=== PATIENT | female | born 1930 | race Caucasian/White ===

== ENCOUNTER 2017-02-25 09:43 | Emergency (ER) | payer MEDICARE, OTHER ==
[~2017-02-25] VITALS: Ht 162.6 cm; Wt 58.2 kg
[~2017-02-25 09:43] MED LIST: AMLO2.5T PO; COUM3TAB PO; COUM4TAB7 PO; HYDR12.56 PO; LISI-363 PO; POTA10IN2 PO; PRAV10 PO
[2017-02-25 09:45] VITALS: BP 118/56; PULSE 72; PULSE 80; RESP 16; TEMP 97.6; O2SAT 98
[2017-02-25] MEDS ORDERED: BACT800T5 PO (10:16)
[2017-02-25] MEDS ORDERED: WARF-58 PO (10:16)
[2017-02-25] MEDS ORDERED: PRED10 PO (10:16)
[2017-02-25] MEDS ORDERED: PRAV20TA2 PO (10:16)
[2017-02-25] MEDS ORDERED: LISI-515 PO (10:16)
[2017-02-25] MEDS ORDERED: POTA10TA15 PO (10:16)
[2017-02-25] MEDS ORDERED: ALPR0.25 PO (10:16)
[2017-02-25] MEDS ORDERED: METO25TA6 PO (10:16)
[2017-02-25] MEDS ORDERED: TRIA37.5 PO (10:16)
--- NOTE | 2017-02-25 10:24 | PD ---
HPI Chief Complaint: Back/ Neck Pain or Injury Time Seen by Provider: 10:02 Travel History International Travel<30 days: No Contact w/Intl Traveler<30days: No Traveled to known affect area: No History of Present Illness HPI The patient was seen and examined in the presence of the nurse. This patient complains of intermittent low back pain for one week. No fall or injury. She is getting around with a walker. Severity symptoms is moderate. No alleviating factors. No fever or urinary complaints. Pain is brought on by certain position changes and movements. PFSH Past Medical History Hx Anticoagulant Therapy: Yes (COUMADIN) Cardiovascular Problems: Yes (CABG X 4 ) High Cholesterol: Yes Coronary Artery Disease: Yes Hypertension: Yes Tetanus Vaccination: > 5 Years Influenza Vaccination: Yes Past Surgical History Coronary Artery Bypass Graft: Yes (X4) Social History Alcohol Use: No Tobacco Use: No Substance Use: No Allergies-Medications (Allergen,Severity, Reaction): Coded Allergies: No Known Allergies (Unverified , 02/25/17) Reported Meds & Prescriptions Reported Meds & Active Scripts Active Reported Potassium Chloride Microencaps 10 Meq Tab 10 Meq PO DAILY Triamterene-Hydrochlorothiazide 37.5-25 Mg Tab 1 Tab PO DAILY Warfarin 3 Mg Tab 1.5 Tab PO DAILY Lisinopril 20 Mg Tab 20 Mg PO DAILY Metoprolol Succinate ER 24 HR (Metoprolol Succinate) 25 Mg Tab 25 Mg PO DAILY Prednisone 10 Mg Tab 10 Mg PO DAILY Pravastatin 20 Mg Tab 20 Mg PO DAILY Bactrim DS (Sulfamethoxazole-Trimethoprim) 800-160 Mg Tab 1 Tab PO BID Alprazolam 0.25 Mg Tab 0.25 Mg PO DAILY PRN Review of Systems General / Constitutional: No: Fever HENT: No: Headaches Cardiovascular: No: Palpitations Respiratory: No: Cough Physical Exam Narrative Gen.: Thin elderly woman with some low back pain CARDIOVASCULAR: Irregularly irregular rhythm without murmur. Extremities showed no edema or varicosities. GASTROINTESTINAL: Abdomen soft, non-tender, nondistended. Positive bowel sounds. No hepato-splenomegaly, or palpable masses. No guarding. NEUROLOGICAL: Awake and alert. Pupils are equal round and reactive. Motor and sensory grossly within normal limits. Five out of 5 muscle strength in all muscle groups. Normal speech. Straight leg and cross straight leg raise negative Data Data Last Documented VS Vital Signs Date Time Temp Pulse Resp B/P Pulse Ox O2 Delivery O2 Flow Rate FiO2 02/25/17 09:45 72 16 118/56 98 Room Air 02/25/17 09:45 97.6 Orders Spine, Lumbar - Ltd (Ap & Lat) (02/25/17 ) Oxycodone-Acetamin 5-325 Mg (Percocet (02/25/17 10:45) MDM Medical Decision Making Medical Screen Exam Complete: Yes Emergency Medical Condition: Yes Medical Record Reviewed: Yes Differential Diagnosis Compression fracture, arthritis, lumbar strain Narrative Course I have reviewed the patient's electronic medical record. This patient has intermittent low central back pain for a week. No injury or fever or urinary complaints. By history and exam this points to a musculoskeletal origin. I reviewed her lumbosacral spine x-rays which show chronic and stable L5 insufficiency fracture as well as diffuse arthritic change I don't have clinical suspicion of something more sinister such as AAA. Her vital signs are normal. No hypotension or tachycardia. She is basically asymptomatic when at rest in the bed and not moving. I gave her a pain pill for it. I wrote her some tramadol. She is stable for outpatient follow-up. She is ambulatory with a walker. A family friend who is with her in the ER is going to call her family physician tomorrow morning and get follow-up. They're going to discuss transition to [facility] care Diagnosis Primary Impression: Low back pain Qualified Code: M54.5 - Acute midline low back pain without sciatica Additional Instructions: The patient was advised to follow up with their physician and return if they worsen. The patient was warned about potential sedation for the medications they will receive on prescription. Med/Other Pt SpecificInfo: Prescription(s) given Scripts Tramadol 50 Mg Tab50 Mg PO Q6H PRN (PAIN) #25 TAB Ref 0 Prov:Will Sofia MD 02/25/17 Disposition: 01 DISCHARGE HOME Condition: Stable Will Sofia MD Feb 25, 2017 10:24
--- NOTE | 2017-02-25 10:44 | RADRPT ---
EXAM DATE/TIME: 02/25/2017 10:23 [facility] COMPARISON: HIP LEFT (AP&LAT 2/3VWS) W AP PELVIS, May 04, 2016, 15:23. INDICATIONS : Back pain. MEDICAL HISTORY : None. SURGICAL HISTORY : None. ENCOUNTER: Initial ACUITY: 4 - 6 days PAIN SCORE: 10/10 LOCATION: Lumbar FINDINGS: Multiple views of the lumbar spine again demonstrate diffuse osteopenia and curvature of the lumbar s pine apex left with multilevel degenerative disc changes and insufficiency fracture involving the L5 vertebral body. This appears unchanged from prior plain film of April 2016. No new findings. Imaged heart is remarkable for cardiac valve and in fact median sternotomy wires. Residual pacing khloe ds are noted. CONCLUSION: Osteopenia, scoliosis and multilevel degenerative change with stable appearance of insufficiency frac ture at the level of L5. Lakeshia Beltran MD on February 25, 2017 at 10:41 Board Certified Radiologist. This report was verified electronically.
[2017-02-25 10:45] VITALS: BP 103/51; PULSE 74; RESP 16; O2SAT 98
[2017-02-25] MEDS ORDERED: TRAM50TA PO (11:03)
[2017-02-25] MEDS: oxyCODONE/ACETAMINOPHEN 5 MG/325 MG TAB PO ONE (11:05)
[2017-03-22] MEDS ORDERED: BACT800T5 PO (15:14)
[2017-05-02] MEDS ORDERED: eloquis PO (11:58)
[2017-05-03] MEDS ORDERED: APIX2.5T PO (11:22)
== END 2017-02-25 11:30 | disposition home or self-care (01) ==
LOC: NEPE 09:43
DX: M54.5 Low back pain (principal); I25.10 Atherosclerotic heart disease of native coronary artery without angina pectoris; I10 Essential (primary) hypertension; E78.00 Pure hypercholesterolemia, unspecified; Z79.01 Long term (current) use of anticoagulants; Z79.899 Other long term (current) drug therapy
CPT/HCPCS: 72100; 99283

== ENCOUNTER 2018-04-21 17:21 | Inpatient (IN) | payer MEDICARE, OTHER ==
[~2018-04-21] VITALS: Ht 165.1 cm; Wt 57.0 kg
[~2018-04-21 17:21] MED LIST changes: +ALPR0.25 PO; -AMLO2.5T PO; +APIX2.5T PO; -COUM3TAB PO; -COUM4TAB7 PO; -HYDR12.56 PO; -LISI-363 PO; +LISI-515 PO; +METO1TAB42 PO; -POTA10IN2 PO; +POTA10TA15 PO; -PRAV10 PO; +PRAV20TA2 PO; +TRIA37.5 PO
[2018-04-21 17:33] VITALS: BP 128/80; PULSE 95; RESP 20; TEMP 98.1; O2SAT 95
--- NOTE | 2018-04-21 18:44 | RADRPT ---
EXAM DATE: 04/21/2018 6:39 PM EDT AGE/SEX: 88 years / Female INDICATIONS: Cough. CLINICAL DATA: This is the patient's initial encounter. Patient reports that signs and symptoms have been present for 1 day and indicates a pain score of 0/10. MEDICAL/SURGICAL HISTORY: Cardiovascular disease. CABG. COMPARISON: [facility], CHEST SINGLE AP, 05/04/2016. . FINDINGS: Patchy infiltrates are noted bilaterally consistent with moderate pulmonary edema versus pneumonia. C linical correlation is recommended. The heart is enlarged. Median sternotomy wires are noted status p ost cardiac surgery. The left hemidiaphragm remains elevated. Degenerative changes and scoliosis of t he thoracolumbar spine are noted. CONCLUSION: 1. Infiltrates bilaterally consistent with moderate pulmonary edema versus pneumonia. Clinical corre lation is recommended. 2. Cardiomegaly. 3. Elevation of the left hemidiaphragm. 4. Degenerative changes and scoliosis of the thoracolumbar spine. Electronically signed by: Marcelo Ahuja MD 04/21/2018 6:43 PM EDT
--- NOTE | 2018-04-21 18:45 | RADRPT ---
EXAM DATE: 04/21/2018 6:39 PM EDT AGE/SEX: 88 years / Female INDICATIONS: Left ankle and heel pain. CLINICAL DATA: This is the patient's initial encounter. Patient reports that signs and symptoms have been present for 1 day and indicates a pain score of 8/10. MEDICAL/SURGICAL HISTORY: Cardiovascular disease. Gout CABG. COMPARISON: No prior [facility] exams available for comparison. FINDINGS: Bones are diffusely osteopenic. I don't see a fracture or subluxation of the left ankle. Thickening and patchy calcification seen of Achilles. There is a small to moderate enthesophyte of it s insertion. Small heel spur present. CONCLUSION: No fracture or subluxation demonstrated of the left ankle. Osteopenia. Probable Achilles tendinosis. Electronically signed by: Devonte Cantu MD 04/21/2018 6:44 PM EDT
[2018-04-21] MEDS ORDERED: AZITHROMYCIN INJ 500 MG in SODIUM CHLOR 0.9% 250 ML INJ 250 ML IV ONE (19:00)
[2018-04-21] MEDS ORDERED: cefTRIAXone INJ 1,000 MG in SODIUM CHLORIDE 0.9% INJ 100 ML IV ONE (19:00)
--- NOTE | 2018-04-21 19:00 | PD ---
HPI Chief Complaint: Injury Time Seen by Provider: 17:52 Travel History International Travel<30 days: No Contact w/Intl Traveler<30days: No Traveled to known affect area: No History of Present Illness HPI Patient is an 88-year-old female who presents emergency department several days after twisting her left ankle. She states that she felt a pop initially and has been walking on it initially having some bruises but ultimately healing well. She also has been having some shortness of breath and cough and has a history of bronchitis in the past and thought that this was that. She had some old antibiotics left over from a previous infection and began taking them. Denies a smoking history. Denies any chest pain head injury neck injury back injury. 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 Reported Meds & Prescriptions Reported Meds & Active Scripts Active Reported Eliquis (Apixaban) 2.5 Mg Tab 2.5 Mg PO BID Potassium Chloride Microencaps 10 Meq Tab 10 Meq PO DAILY Triamterene-Hydrochlorothiazide 37.5-25 Mg Tab 1 Tab PO DAILY Lisinopril 20 Mg Tab 20 Mg PO DAILY Metoprolol Succinate ER 24 HR (Metoprolol Succinate) 25 Mg Tab 25 Mg PO DAILY Pravastatin 20 Mg Tab 20 Mg PO DAILY Alprazolam 0.25 Mg Tab 0.25 Mg PO DAILY PRN Review of Systems Except as stated in HPI: all other systems reviewed are Neg Physical Exam Narrative GENERAL: Well-developed well-nourished, quite pleasant, nontoxic appearance in no acute distress peer SKIN: Focused skin assessment warm/dry. HEAD: Atraumatic. Normocephalic. Atraumatic EYES: Pupils equal and round. No scleral icterus. No injection or drainage. ENT: No nasal bleeding or discharge. Mucous membranes pink and moist. NECK: Trachea midline. No JVD. CARDIOVASCULAR: Regular rate and rhythm. No murmur appreciated. RESPIRATORY: No accessory muscle use. Bibasilar rales heard which are very fine.. Breath sounds equal bilaterally. GASTROINTESTINAL: Abdomen soft, non-tender, nondistended. Hepatic and splenic margins not palpable. MUSCULOSKELETAL: No obvious deformities. No clubbing. No cyanosis. No edema. There is no bruising no tenderness over the medial or lateral malleoli nor the midfoot nor forefoot on the left ankle, the remainder of her extremity examination is atraumatic. There is no midline CT or L-spine tenderness but the patient has significant scoliosis. Pelvis is stable. NEUROLOGICAL: Awake and alert. No obvious cranial nerve deficits. Motor grossly within normal limits. Normal speech. PSYCHIATRIC: Appropriate mood and affect; insight and judgment normal. Data Data Last Documented VS Vital Signs Date Time Temp Pulse Resp B/P (MAP) Pulse Ox O2 Delivery O2 Flow Rate FiO2 04/21/18 19:25 95 Nasal Cannula 04/21/18 19:25 90 18 141/96 (111) 2.00 04/21/18 17:33 98.1 Orders Orders Chest, Pa & Lat (04/21/18 ) Ankle, Complete ([id number]) (04/21/18 ) Sepsis Workup Initiated (04/21/18 ) Complete Blood Count With Diff (04/21/18 18:49) Comprehensive Metabolic Panel (04/21/18 18:49) Prothrombin Time / Inr (Pt) (04/21/18 18:49) Act Partial Throm Time (Ptt) (04/21/18 18:49) Lactic Acid Sepsis Protocol (04/21/18 18:49) Magnesium (Mg) (04/21/18 18:49) Lipase (04/21/18 18:49) Ckmb (Isoenzyme) Profile (04/21/18 18:49) Troponin I (04/21/18 18:49) Urinalysis - C+S If Indicated (04/21/18 18:49) Blood Culture (04/21/18 18:49) Ecg Monitoring (04/21/18 18:49) Iv Access Insert/Monitor (04/21/18 18:49) Oximetry (04/21/18 18:49) Oxygen Administration (04/21/18 18:49) Ceftriaxone Inj (Rocephin Inj) (04/21/18 19:00) Azithromycin Inj (Zithromax Inj) (04/21/18 19:00) Labs Laboratory Tests Test 04/21/18 19:20 White Blood Count 8.6 TH/MM3 Red Blood Count 3.88 MIL/MM3 Hemoglobin 12.9 GM/DL Hematocrit 38.6 % Mean Corpuscular Volume 99.6 FL Mean Corpuscular Hemoglobin 33.2 PG Mean Corpuscular Hemoglobin Concent 33.4 % Red Cell Distribution Width 14.3 % Platelet Count 173 TH/MM3 Mean Platelet Volume 9.2 FL Neutrophils (%) (Auto) 82.1 % Lymphocytes (%) (Auto) 4.3 % Monocytes (%) (Auto) 12.9 % Eosinophils (%) (Auto) 0.5 % Basophils (%) (Auto) 0.2 % Neutrophils # (Auto) 7.1 TH/MM3 Lymphocytes # (Auto) 0.4 TH/MM3 Monocytes # (Auto) 1.1 TH/MM3 Eosinophils # (Auto) 0.0 TH/MM3 Basophils # (Auto) 0.0 TH/MM3 CBC Comment DIFF FINAL Differential Comment MDM Medical Decision Making Medical Screen Exam Complete: Yes Emergency Medical Condition: Yes Differential Diagnosis Pulmonary fibrosis, pneumonia, SIRS, sepsis, hypoxia, ankle sprain, ankle fracture, ankle strain peer Narrative Course Patient room to the emergency department, she is mildly hypoxic in the emergency department placed on 2 L nasal cannula and is tolerating this fairly well. Her bibasilar rales are confirmed on chest x-ray which does show either pneumonia, pulmonary edema or could be pulmonary fibrosis. The patient's previous chest x-ray was from 2016 and did not show as significant findings as they are today. For that reason I have added basic lab work we discussed the patient with Dr. Martinez at 1900 shift change to follow-up labs and disposition the patient appropriately. Last 24 hours Impressions Chest X-Ray 04/21/18 0000 Signed Impressions: CONCLUSION: 1. Infiltrates bilaterally consistent with moderate pulmonary edema versus pne umonia. Clinical correlation is recommended. 2. Cardiomegaly. 3. Elevation of the left hemidiaphragm. 4. Degenerative changes and scoliosis of the thoracolumbar spine. Ankle X-Ray 04/21/18 0000 Signed Impressions: CONCLUSION: No fracture or subluxation demonstrated of the left ankle. Osteopenia. Probable Achilles tendinosis. Marcelo Joy MD Apr 21, 2018 19:00
[2018-04-21 19:25] VITALS: BP 141/96; PULSE 90; RESP 18; O2SAT 96
--- NOTE | 2018-04-21 19:27 | PD ---
Physical Exam Narrative General: The patient is a well-developed well-nourished female in no acute distress. Head and Neck exam: Head is normocephalic atraumatic. Eyes: EOMI, pupils are equal round and reactive to light. Nose: Midline septum with pink mucous membranes Mouth: Dentition unremarkable. Moist mucus membranes. Posterior oropharynx is not erythematous. No tonsillar hypertrophy. Uvula midline. Airway patent. Neck: No palpable lymphadenopathy. No nuchal rigidity. No thyromegaly. Cardiovascular: Irregularly erect without murmurs, gallops, or rubs. No pulse deficit to the extremities on simultaneous auscultation and palpation of her radial artery. Lungs: Crackles are audible in bilateral lung davis most prominent in the lung bases. The patient has a frequent dry cough on exam. No wheezes or rhonchi are audible. Abdomen: Soft, without tenderness to palpation in all 4 quadrants of the abdomen. No guarding, rebound, or rigidity. Normal bowel sounds are audible. No tenderness on palpation of McBurney's point. Extremities: No clubbing, cyanosis, or edema. 2+ pulses in all 4 extremities. No calf tenderness on palpation. The patient on examination of the left foot reports having pain along the plantar fascia. No erythema or ecchymosis noted. Neurologic Exam: Grossly nonfocal. Skin Exam: No rash noted. Intact skin that is warm and dry. Data Data Last Documented VS Vital Signs Date Time Temp Pulse Resp B/P (MAP) Pulse Ox O2 Delivery O2 Flow Rate FiO2 04/21/18 21:00 92 18 138/81 (100) 96 Nasal Cannula 2.00 04/21/18 17:33 98.1 Orders Orders Chest, Pa & Lat (04/21/18 ) Ankle, Complete ([id number]) (04/21/18 ) Sepsis Workup Initiated (04/21/18 ) Complete Blood Count With Diff (04/21/18 18:49) Comprehensive Metabolic Panel (04/21/18 18:49) Prothrombin Time / Inr (Pt) (04/21/18 18:49) Act Partial Throm Time (Ptt) (04/21/18 18:49) Lactic Acid Sepsis Protocol (04/21/18 18:49) Magnesium (Mg) (04/21/18 18:49) Lipase (04/21/18 18:49) Ckmb (Isoenzyme) Profile (04/21/18 18:49) Troponin I (04/21/18 18:49) Urinalysis - C+S If Indicated (04/21/18 18:49) Blood Culture (04/21/18 18:49) Ecg Monitoring (04/21/18 18:49) Iv Access Insert/Monitor (04/21/18 18:49) Oximetry (04/21/18 18:49) Oxygen Administration (04/21/18 18:49) Ceftriaxone Inj (Rocephin Inj) (04/21/18 19:00) Azithromycin Inj (Zithromax Inj) (04/21/18 19:00) B-Type Natriuretic Peptide (04/21/18 21:09) Admit Order (Ed Use Only) (04/21/18 21:50) Labs Laboratory Tests Test 04/21/18 19:20 White Blood Count 8.6 TH/MM3 Red Blood Count 3.88 MIL/MM3 Hemoglobin 12.9 GM/DL Hematocrit 38.6 % Mean Corpuscular Volume 99.6 FL Mean Corpuscular Hemoglobin 33.2 PG Mean Corpuscular Hemoglobin Concent 33.4 % Red Cell Distribution Width 14.3 % Platelet Count 173 TH/MM3 Mean Platelet Volume 9.2 FL Neutrophils (%) (Auto) 82.1 % Lymphocytes (%) (Auto) 4.3 % Monocytes (%) (Auto) 12.9 % Eosinophils (%) (Auto) 0.5 % Basophils (%) (Auto) 0.2 % Neutrophils # (Auto) 7.1 TH/MM3 Lymphocytes # (Auto) 0.4 TH/MM3 Monocytes # (Auto) 1.1 TH/MM3 Eosinophils # (Auto) 0.0 TH/MM3 Basophils # (Auto) 0.0 TH/MM3 CBC Comment DIFF FINAL Differential Comment Prothrombin Time 11.2 SEC Prothromb Time International Ratio 1.1 RATIO Activated Partial Thromboplast Time 35.0 SEC Blood Urea Nitrogen 19 MG/DL Creatinine 0.79 MG/DL Random Glucose 98 MG/DL Total Protein 6.9 GM/DL Albumin 3.0 GM/DL Calcium Level 9.6 MG/DL Magnesium Level 2.1 MG/DL Alkaline Phosphatase 102 U/L Aspartate Amino Transf (AST/SGOT) 19 U/L Alanine Aminotransferase (ALT/SGPT) 29 U/L Total Bilirubin 1.0 MG/DL Sodium Level 135 MEQ/L Potassium Level 4.0 MEQ/L Chloride Level 96 MEQ/L Carbon Dioxide Level 28.2 MEQ/L Anion Gap 11 MEQ/L Estimat Glomerular Filtration Rate 69 ML/MIN Lactic Acid Level 1.4 mmol/L Total Creatine Kinase 35 U/L Troponin I LESS THAN 0.02 NG/ML B-Type Natriuretic Peptide 412 PG/ML Lipase 73 U/L [facility] Medical Record Reviewed: Yes Supervised Visit with MORIAH: No Narrative Course During the course of the patient's emergency department visit, the patient's history, examination, and differential diagnosis were reviewed with the patient. The patient was placed on a monitoring manager with oximetry and frequent blood pressure monitoring. The patient had IV access obtained and blood work sent for analysis. The patient's case was checked out to me by Dr. Joy. Please see his complete history and physical. The patient's case was checked out to me at the conclusion of his shift. The patient according to Dr. Joy was mildly hypoxic and placed on 2 L nasal cannula O2. The patient was noted to have bilateral crackles. The patient reports a history of cough, congestion that she reports began 2 days ago. She reports having dyspnea on exertion and shortness of breath with persistent cough. She denies having any chest pain. She denies having any prior history of coronary artery disease. Her primary care physician is Dr. Wellington. Her truck railroad and bus motor mechanic is Dr. Oates. She reports a prior history of coronary artery disease with 4 vessels being bypassed and a valve being replaced. She is anticoagulated on Eliquis. The patient reports having a subjective fever over the last 2 days, however she has not checked her temperature. The patient was initially provided Rocephin 1 g IV, Zithromax 500 IV. The patient's laboratory studies were reviewed and remarkable for a white count of 8.6, hemoglobin 12.9, platelets 173 with 82.1 neutrophils, monocytes 12.9, CMP is remarkable for a sodium of 135, chloride 96, BUN 19, GFR of 69, cardiac enzymes within normal limits, lipase 73, lactic acid 1.4, PT 11.2, PTT 35 Radiology studies were reviewed and remarkable for Last Impressions Chest X-Ray 04/21/18 0000 Signed Impressions: CONCLUSION: 1. Infiltrates bilaterally consistent with moderate pulmonary edema versus pne umonia. Clinical correlation is recommended. 2. Cardiomegaly. 3. Elevation of the left hemidiaphragm. 4. Degenerative changes and scoliosis of the thoracolumbar spine. Ankle X-Ray 04/21/18 0000 Signed Impressions: CONCLUSION: No fracture or subluxation demonstrated of the left ankle. Osteopenia. Probable Achilles tendinosis. Given the possibility of pulmonary edema from congestive heart failure is being the cause of the patient's bilateral infiltrates, BNP was added to the patient' s workup. The patient denies any prior history of congestive heart failure. The patient reports having a recent history of cough and congestion with subjective fever. At this point the patient will be treated for an atypical bilateral pneumonia. The patient's results were discussed with the patient, including the plan of care. I explained that further testing and/ or monitoring is indicated based on the patient's history, examination, and/ or laboratory findings. Therefore, I recommended admission for additional evaluation. The patient expressed understanding and was agreeable with this plan. The patient was admitted to the hospital in stable condition and sent to a bed [facility]. Physician Communication Physician Communication The patient's case including history, pertinent physical examination findings, and laboratory studies were discussed with Dr. Olmos. It was agreed that the patient would be admitted to the [facility] service. Diagnosis Primary Impression: PNA (pneumonia) Admitting Information Admitting Physician Requests: Observation Tamara Martinez MD Apr 21, 2018 19:27
[2018-04-21 20:01] LABS: AUTOMATED NEUTROPHIL # 7.1 TH/MM3 (1.8-7.7); BASOPHIL % 0.2 % (0.0-2.0); EOSINOPHIL % 0.5 % (0.0-4.0); HEMATOCRIT 38.6 % (35.0-46.0); HEMOGLOBIN 12.9 GM/DL (11.6-15.3); LYMPH % 4.3 % (9.0-44.0); LYMPHOCYTE # 0.4 TH/MM3 (1.0-4.8); MEAN CELL VOLUME 99.6 FL (80.0-100.0); MEAN CORPUSCULAR HEMOGLOBIN 33.2 PG (27.0-34.0); MEAN CORPUSCULAR HGB CONC 33.4 % (32.0-36.0); MEAN PLATELET VOLUME 9.2 FL (7.0-11.0); MONO % 12.9 % (0.0-8.0); MONOCYTE # 1.1 TH/MM3 (0-0.9); NEUT % 82.1 % (16.0-70.0); PLATELET COUNT 173 TH/MM3 (150-450); RED BLOOD COUNT 3.88 MIL/MM3 (4.00-5.30); RED CELL DISTRIBUTION WIDTH 14.3 % (11.6-17.2); WHITE BLOOD COUNT 8.6 TH/MM3 (4.0-11.0)
[2018-04-21 20:12] LABS: INTERNATIONAL NORMALIZED RATIO 1.1 RATIO; PROTHROMBIN TIME - PATIENT 11.2 SEC (9.8-11.6)
[2018-04-21 20:28] LABS: AST (GOT) 19 U/L (15-37); BICARBONATE 28.2 MEQ/L (21.0-32.0); BLOOD UREA NITROGEN 19 MG/DL (7-18); CALCIUM 9.6 MG/DL (8.5-10.1); CHLORIDE 96 MEQ/L (98-107); CREATININE 0.79 MG/DL (0.50-1.00); GLOMERULAR FILTRATION RATE 69 ML/MIN (>89); GLUCOSE,RANDOM 98 MG/DL (74-106); MAGNESIUM 2.1 MG/DL (1.5-2.5); SODIUM (NA) 135 MEQ/L (136-145)
[2018-04-21 20:36] LABS: ALKALINE PHOSPHATASE 102 U/L (45-117); ALT (GPT) 29 U/L (10-53); TOTAL PROTEIN 6.9 GM/DL (6.4-8.2); TROPONIN I LESS THAN 0.02 NG/ML (0.02-0.05)
[2018-04-21 21:00] VITALS: BP 138/81; PULSE 92; RESP 18; O2SAT 96
--- NOTE | 2018-04-21 22:26 | HHI.HP ---
[facility] Kristin Wellington MD Admission Diagnosis bilateral pneumonia Diagnoses: (1) PNA (pneumonia) Diagnosis: Principal (2) Foot pain, left Diagnosis: Principal (3) Gait instability Diagnosis: Principal Travel History International Travel<30 Days: No Contact w/Intl Traveler <30 Da: No Traveled to Known Affected Are: No History of Present Illness This is an 88-year-old female with a PMH of HTN, Hyperlipidemia, CAD and Chronic Anticoagulation w/ Eliquis (reason unclear) who presented to the ER w/ complaints of SOB, cough and left foot pain. Reports cough/SOB for 3-4 days, states she had leftover antibiotics from previous dental infection and was told by her neighbor she should take it until she could be seen by her PCP on Sunday. Neighbor at bedside also states pt lives alone and has increasing difficulty w/ ambulation due to left foot pain from plantar fasciitis. Ambulates w/ walker. Denies fever, chills or chest pain. On arrival, BP 128/80 , HR 95, O2 sat 95% on 2L NC, Afebrile. CBC unremarkable. Chemistry essentially unremarkable except for BUN 19. Troponin negative. BNP 412. INR 1.1. Ankle X-ray with no acute fracture or subluxation. CXR with bilateral infiltrates and pulmonary pulmonary edema. S/p Rocephin/Zithro in ER. Review of Systems Except as stated in HPI: all other systems reviewed are Neg ROS: 14 point review of systems otherwise negative. 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 No h/o DM or CAD Social History PAST SOCIAL HISTORY: Negative for alcohol, tobacco or drugs. Physical Exam Vital Signs Vital Signs Date Time Temp Pulse Resp B/P (MAP) Pulse Ox O2 Delivery O2 Flow Rate FiO2 04/21/18 19:25 95 Nasal Cannula 04/21/18 19:25 90 18 141/96 (111) 96 Nasal Cannula 2.00 04/21/18 17:45 20 96 Nasal Cannula 2.00 04/21/18 17:33 98.1 95 20 128/80 (96) 95 Physical Exam PE: GENERAL: Very pleasant elderly white female in no acute distress. Friend at bedside HEENT: PERRLA, EOMI. No scleral icterus or conjunctival pallor. No lid lag or facial droop. CARDIOVASCULAR: Regular rate and rhythm. No obvious murmurs to auscultation. No chest tenderness to palpation. RESPIRATORY: No obvious rhonchi or wheezing. Clear to auscultation. Breath sounds equal bilaterally. GASTROINTESTINAL: Abdomen soft, non-tender, nondistended. BS normal. MUSCULOSKELETAL: Extremities without clubbing, cyanosis, or edema. No obvious deformities. Tenderness to palpation left heel, no obvious lesion/wound NEUROLOGICAL: Awake, alert and oriented x4. No focal neurologic deficits. Moving both upper and lower extremities spontaneously. Laboratory Laboratory Tests Test 04/21/18 19:20 White Blood Count 8.6 Red Blood Count 3.88 Hemoglobin 12.9 Hematocrit 38.6 Mean Corpuscular Volume 99.6 Mean Corpuscular Hemoglobin 33.2 Mean Corpuscular Hemoglobin Concent 33.4 Red Cell Distribution Width 14.3 Platelet Count 173 Mean Platelet Volume 9.2 Neutrophils (%) (Auto) 82.1 Lymphocytes (%) (Auto) 4.3 Monocytes (%) (Auto) 12.9 Eosinophils (%) (Auto) 0.5 Basophils (%) (Auto) 0.2 Neutrophils # (Auto) 7.1 Lymphocytes # (Auto) 0.4 Monocytes # (Auto) 1.1 Eosinophils # (Auto) 0.0 Basophils # (Auto) 0.0 CBC Comment DIFF FINAL Differential Comment Prothrombin Time 11.2 Prothromb Time International Ratio 1.1 Activated Partial Thromboplast Time 35.0 Blood Urea Nitrogen 19 Creatinine 0.79 Random Glucose 98 Total Protein 6.9 Albumin 3.0 Calcium Level 9.6 Magnesium Level 2.1 Alkaline Phosphatase 102 Aspartate Amino Transf (AST/SGOT) 19 Alanine Aminotransferase (ALT/SGPT) 29 Total Bilirubin 1.0 Sodium Level 135 Potassium Level 4.0 Chloride Level 96 Carbon Dioxide Level 28.2 Anion Gap 11 Estimat Glomerular Filtration Rate 69 Lactic Acid Level 1.4 Total Creatine Kinase 35 Troponin I LESS THAN 0.02 B-Type Natriuretic Peptide 412 Lipase 73 Date/Time Source Procedure Growth Status 04/21/18 19:20 Blood Peripheral Aerobic Blood Culture Pending Received 04/21/18 19:20 Blood Peripheral Anaerobic Blood Culture Pending Received Result Diagram: 04/21/18191904/21/181919 Caprini VTE Risk Assessment Caprini VTE Risk Assessment: Mod/High Risk (score >= 2) Caprini Risk Assessment Model Point Value = 1 Point Value = 2 Point Value = 3 Point Value = 5 Age 41-60 Minor surgery BMI > 25 kg/m2 Swollen legs Varicose veins or History of unexplained or recurrent spontaneous Oral contraceptives or hormone replacement Sepsis (< 1 month) Serious lung disease, including pneumonia (< 1 month) Abnormal pulmonary function Acute myocardial infarction Congestive heart failure (< 1 month) History of inflammatory bowel disease Medical patient at bed rest Age 61-74 Arthroscopic surgery Major open surgery (> 45 min) Laparoscopic surgery (> 45 min) Malignancy Confined to bed (> 72 hours) Immobilizing plaster cast Central venous access Age >= 75 History of VTE Family history of VTE Factor V Leiden Prothrombin [id number] Lupus anticoagulant Anticardiolipin antibodies Elevated serum homocysteine Heparin-induced thrombocytopenia Other congenital or acquired thrombophilia Stroke (< 1 month) Elective arthroplasty Hip, pelvis, or leg fracture Acute spinal cord injury (< 1 month) Prophylaxis Regimen Total Risk Factor Score Risk Level Prophylaxis Regimen 0-1 Low Early ambulation 2 Moderate Order ONE of the following: *Sequential Compression Device (SCD) *Heparin 5000 units SQ BID 3-4 Higher Order ONE of the following medications: *Heparin 5000 units SQ TID *Enoxaparin/Lovenox 40 mg SQ daily (WT < 150 kg, CrCl > 30 mL/min) *Enoxaparin/Lovenox 30 mg SQ daily (WT < 150 kg, CrCl > 10-29 mL/min) *Enoxaparin/Lovenox 30 mg SQ BID (WT < 150 kg, CrCl > 30 mL/min) AND/OR *Sequential Compression Device (SCD) 5 or more Highest Order ONE of the following medications: *Heparin 5000 units SQ TID (Preferred with Epidurals) *Enoxaparin/Lovenox 40 mg SQ daily (WT < 150 kg, CrCl > 30 mL/min) *Enoxaparin/Lovenox 30 mg SQ daily (WT < 150 kg, CrCl > 10-29 mL/min) *Enoxaparin/Lovenox 30 mg SQ BID (WT < 150 kg, CrCl > 30 mL/min) AND *Sequential Compression Device (SCD) Assessment and Plan Problem List: (1) PNA (pneumonia) ICD Code: J18.9 - Pneumonia, unspecified organism (2) Foot pain, left ICD Code: M79.672 - Pain in left foot (3) Gait instability ICD Code: R26.81 - Unsteadiness on feet Assessment and Plan A/P: 1. PNA: c/o cough/SOB x3-4 days, taking leftover antibiotics for dental infection, CXR w/ bilateral infiltrates and moderate pulmonary edema, images reviewed by me. S/p Rocephin/Zithro in ER, will continue w/ IV Abx, DuoNeb prn , monitor O2. 2. Foot Pain: Left. Secondary to plantar fasciitis, Ankle X-ray w/ no acute fracture, probable Achilles tendinosis, however no evidence on exam. Shoe insert, PT as needed, outpatient follow up. 3. Gait Instability: Secondary to left foot pain, ambulates w/ walker at baseline, now increasingly difficult, lives alone currently. PT for eval/tx. Case Management for possible placement. 4. DVT Prophylaxis: Resume Eliquis 5. Social work for DC planning as needed. 6. Case discussed at length with the ER physician, lab/record/imaging reviewed by me. Physician Certification 2 Midnight Certification Type: Admission for Inpatient Services Order for Inpatient Services The services are ordered in accordance with Medicare regulations or non- Medicare payer requirements, as applicable. In the case of services not specified as inpatient-only, they are appropriately provided as inpatient services in accordance with the 2-midnight benchmark. Estimated LOS (days): 2 days is the estimated time the patient will need to remain in the hospital, assuming treatment plan goals are met and no additional complications. Post-Hospital Plan: Not yet determined Kelly Olmos MD Apr 21, 2018 22:26
[2018-04-21] MEDS ORDERED: ACETAMINOPHEN/HYDROcodone 325 MG/5 MG TAB PO PRN (22:30)
[2018-04-21] MEDS ORDERED: BISACODYL 10 MG SUPP RECTAL PRN (22:30)
[2018-04-21] MEDS ORDERED: ALPRAZolam 0.25 MG TAB PO PRN (22:30)
[2018-04-21] MEDS ORDERED: ACETAMINOPHEN/HYDROcodone 325 MG/10 MG TAB PO PRN (22:30)
[2018-04-21] MEDS ORDERED: RESP: ALBUTEROL 2.5 MG/IPRATROPIUM 0.5 MG NEB (PRN) NEB (22:30)
[2018-04-21] MEDS ORDERED: MAGNESIUM HYDROXIDE SUSP 30 ML CUP PO PRN (22:30)
[2018-04-21] MEDS ORDERED: SENNOSIDES 8.6 MG TAB PO PRN (22:30)
[2018-04-21] MEDS ORDERED: APIXABAN 2.5 MG TABLET PO ONE (22:30)
[2018-04-21] MEDS ORDERED: SODIUM CHLORIDE 0.9% FLUSH 10 ML FLUSH IV FLUSH PRN (22:30)
[2018-04-21] MEDS ORDERED: METOCLOPRAMIDE HCL 10 MG/2 ML VIAL IV PUSH PRN (22:30)
[2018-04-21] MEDS ORDERED: LACTULOSE SYRUP 20 GM/30 ML CUP PO PRN (22:30)
[2018-04-21 22:46] VITALS: BP 160/94; PULSE 111; RESP 16; TEMP 97.5; O2SAT 94
[2018-04-22] VITALS (7 sets, daily range): BP systolic 128–168; BP diastolic 82–95; PULSE 66–126; RESP 16–24; TEMP 97.1–98.7; O2SAT 93–97
[2018-04-22] MEDS: PRAVASTATIN SOD 20 MG TAB PO SCH ×2 (00:09→21:19)
[2018-04-22] MEDS ORDERED: DOCUSATE SODIUM 50 MG/SENNA 8.6 MG TAB PO SCH (09:00)
--- NOTE | 2018-04-22 09:59 | HHI.PR ---
Subjective Remarks Follow-up pneumonia/left ankle pain and gait instability April 22, 2018-patient seen and examined, reports some improvement of shortness of breath and currently afebrile. Slightly tachy but denies any heart palpitation. Son by the bedside who stated, patient self medicated herself with amoxicillin twice daily 1 day. Apparently, patient lives alone Objective Vitals Vital Signs Date Time Temp Pulse Resp B/P (MAP) Pulse Ox O2 Delivery O2 Flow Rate FiO2 04/22/18 08:28 98.4 116 24 138/95 (109) 95 04/22/18 04:43 98.4 110 16 154/82 (106) 95 04/22/18 00:59 97.9 115 16 128/84 (99) 93 04/21/18 22:46 97.5 111 16 160/94 (116) 94 04/21/18 22:30 04/21/18 21:00 92 18 138/81 (100) 96 Nasal Cannula 2.00 04/21/18 19:25 95 Nasal Cannula 04/21/18 19:25 90 18 141/96 (111) 96 Nasal Cannula 2.00 04/21/18 17:45 20 96 Nasal Cannula 2.00 04/21/18 17:33 98.1 95 20 128/80 (96) 95 I/O 04/21/18 04/21/18 04/21/18 04/22/18 04/22/18 04/22/18 07:00 15:00 23:00 07:00 15:00 23:00 # Voids 1 # Bowel Movements 1 Result Diagram: 04/21/18191904/21/181919 Imaging Last Impressions Chest X-Ray 04/21/18 0000 Signed Impressions: CONCLUSION: 1. Infiltrates bilaterally consistent with moderate pulmonary edema versus pne umonia. Clinical correlation is recommended. 2. Cardiomegaly. 3. Elevation of the left hemidiaphragm. 4. Degenerative changes and scoliosis of the thoracolumbar spine. Ankle X-Ray 04/21/18 0000 Signed Impressions: CONCLUSION: No fracture or subluxation demonstrated of the left ankle. Osteopenia. Probable Achilles tendinosis. Objective Remarks GENERAL: NAD SKIN: Warm and dry. HEAD: Normocephalic. EYES: No scleral icterus. No injection or drainage. NECK: Supple, trachea midline. No JVD or lymphadenopathy. CARDIOVASCULAR: Regular rate and rhythm without murmurs, gallops, or rubs. RESPIRATORY: Breath sounds equal bilaterally. No accessory muscle use. GASTROINTESTINAL: Abdomen soft, non-tender, nondistended. MUSCULOSKELETAL: No cyanosis, or edema. BACK: Nontender without obvious deformity. No CVA tenderness. A/P Problem List: (1) PNA (pneumonia) ICD Code: J18.9 - Pneumonia, unspecified organism (2) Foot pain, left ICD Code: M79.672 - Pain in left foot (3) Gait instability ICD Code: R26.81 - Unsteadiness on feet Assessment and Plan 88-year-old female with 1. PNA: c/o cough/SOB x3-4 days, taking leftover antibiotics for dental infection, CXR w/ bilateral infiltrates and moderate pulmonary edema. S/p Rocephin/Zithro in ER, continue w/ IV Abx, DuoNeb prn, monitor O2. 2. Foot Pain: Left. Secondary to plantar fasciitis, Ankle X-ray w/ no acute fracture, probable Achilles tendinosis, however no evidence on exam. Shoe insert, PT as needed, outpatient follow up. 3. Gait Instability: Secondary to left foot pain, ambulates w/ walker at baseline, now increasingly difficult, lives alone currently. PT for eval/tx. Case Management for possible placement. 4. CAD/previous CABG: Continue with Eliquis 5. Hyperlipidemia: On pravastatin 6. DVT Prophylaxis: Resume Eliquis Check C. difficile PCR secondary to loose stool Transfer to Isra Simpson MD Apr 22, 2018 09:59
[2018-04-22] MEDS: METOPROLOL SUCCINATE 25 MG EXTENDED RELEASE TAB PO SCH (10:00)
[2018-04-22] MEDS: guaiFENesin E.R. 600 MG TAB PO SCH ×2 (10:01→21:21)
[2018-04-22] MEDS: SODIUM CHLORIDE 0.9% FLUSH 10 ML FLUSH IV FLUSH SCH ×2 (10:01→21:24)
[2018-04-22] MEDS: APIXABAN 2.5 MG TABLET PO SCH ×2 (10:04→21:21)
[2018-04-22 10:07] LABS: AUTOMATED NEUTROPHIL # 7.3 TH/MM3 (1.8-7.7); BASOPHIL % 0.3 % (0.0-2.0); EOSINOPHIL % 0.5 % (0.0-4.0); HEMATOCRIT 35.4 % (35.0-46.0); HEMOGLOBIN 11.8 GM/DL (11.6-15.3); LYMPH % 4.2 % (9.0-44.0); LYMPHOCYTE # 0.4 TH/MM3 (1.0-4.8); MEAN CELL VOLUME 100.4 FL (80.0-100.0); MEAN CORPUSCULAR HEMOGLOBIN 33.6 PG (27.0-34.0); MEAN CORPUSCULAR HGB CONC 33.4 % (32.0-36.0); MEAN PLATELET VOLUME 8.8 FL (7.0-11.0); MONO % 11.8 % (0.0-8.0); NEUT % 83.2 % (16.0-70.0); PLATELET COUNT 165 TH/MM3 (150-450); RED BLOOD COUNT 3.52 MIL/MM3 (4.00-5.30); RED CELL DISTRIBUTION WIDTH 14.5 % (11.6-17.2); WHITE BLOOD COUNT 8.7 TH/MM3 (4.0-11.0)
[2018-04-22 10:22] LABS: ALBUMIN 2.5 GM/DL (3.4-5.0); AST (GOT) 16 U/L (15-37); BICARBONATE 25.8 MEQ/L (21.0-32.0); BLOOD UREA NITROGEN 15 MG/DL (7-18); CALCIUM 9.2 MG/DL (8.5-10.1); CHLORIDE 99 MEQ/L (98-107); CREATININE 0.59 MG/DL (0.50-1.00); GLOMERULAR FILTRATION RATE 96 ML/MIN (>89); GLUCOSE,RANDOM 77 MG/DL (74-106); SODIUM (NA) 137 MEQ/L (136-145)
[2018-04-22 10:24] LABS: ALT (GPT) 26 U/L (10-53)
[2018-04-22 10:26] LABS: ALKALINE PHOSPHATASE 99 U/L (45-117); TOTAL BILIRUBIN ADULT 0.7 MG/DL (0.2-1.0); TOTAL PROTEIN 6.1 GM/DL (6.4-8.2)
[2018-04-22 13:17] LABS: BACTERIA, URINE RARE /hpf; BILIRUBIN, URINE NEG (NEG); BLOOD, URINE NEG (NEG); GLUCOSE,URINE NEG (NEG); KETONE, URINE 40 mg/dL (NEG); MUCUS URINE FEW /lpf (OCC); NITRITE,URINE NEG (NEG); SQUAMOUS EPITHELIAL CELL URINE 1 /hpf (0-5); URINE COLOR YELLOW (YELLW/STRAW); URINE LEUKOCYTE ESTERASE NEG (NEG)
[2018-04-22] MEDS: cefTRIAXone INJ 1,000 MG in SODIUM CHLORIDE 0.9% INJ 100 ML IV SCH (21:20)
[2018-04-22] MEDS: AZITHROMYCIN INJ 500 MG in SODIUM CHLOR 0.9% 250 ML INJ 250 ML IV SCH (21:20)
[2018-04-23] VITALS (7 sets, daily range): BP systolic 118–160; BP diastolic 65–89; PULSE 79–123; RESP 16–22; TEMP 97.1–98.7; O2SAT 93–97
[2018-04-23] MEDS: guaiFENesin E.R. 600 MG TAB PO SCH ×2 (07:45→20:32)
[2018-04-23] MEDS: ACETAMINOPHEN 325 MG TAB PO PRN (07:46)
[2018-04-23] MEDS: APIXABAN 2.5 MG TABLET PO SCH ×2 (07:46→20:32)
[2018-04-23] MEDS: SODIUM CHLORIDE 0.9% FLUSH 10 ML FLUSH IV FLUSH SCH ×2 (07:47→20:34)
[2018-04-23] MEDS: METOPROLOL SUCCINATE 25 MG EXTENDED RELEASE TAB PO SCH (07:51)
[2018-04-23] MEDS ORDERED: INFLUENZA VIRUS VACCINE (QUADRIVALENT) 0.5 ML SYR IM ONE (10:00)
[2018-04-23] MEDS ORDERED: PNEUMOCOCCAL POLYVALENT INJ 25 MCG/0.5 ML SYR IM ONE (10:00)
[2018-04-23 10:35] LABS: AUTOMATED NEUTROPHIL # 9.2 TH/MM3 (1.8-7.7); BASOPHIL % 0.3 % (0.0-2.0); EOSINOPHIL % 0.4 % (0.0-4.0); HEMATOCRIT 39.1 % (35.0-46.0); LYMPHOCYTE # 0.4 TH/MM3 (1.0-4.8); MEAN CELL VOLUME 101.4 FL (80.0-100.0); MEAN CORPUSCULAR HEMOGLOBIN 33.6 PG (27.0-34.0); MEAN CORPUSCULAR HGB CONC 33.2 % (32.0-36.0); MEAN PLATELET VOLUME 9.4 FL (7.0-11.0); MONO % 11.9 % (0.0-8.0); MONOCYTE # 1.3 TH/MM3 (0-0.9); NEUT % 83.4 % (16.0-70.0); PLATELET COUNT 195 TH/MM3 (150-450); RED BLOOD COUNT 3.86 MIL/MM3 (4.00-5.30)
[2018-04-23 11:02] LABS: BICARBONATE 27.3 MEQ/L (21.0-32.0); CALCIUM 9.8 MG/DL (8.5-10.1); CREATININE 0.59 MG/DL (0.50-1.00)
--- NOTE | 2018-04-23 13:14 | HHI.PR ---
Subjective Remarks She was having a lot during the night and not able to sleep. However this comes today she is in the chair. She is on oxygen supplement requiring 3.5 L at this time. Says she is coughing white sputum no blood in it. Feels short of breath. No nausea vomiting diarrhea or constipation. No chest pain. Objective Vitals Vital Signs Date Time Temp Pulse Resp B/P (MAP) Pulse Ox O2 Delivery O2 Flow Rate FiO2 04/23/18 12:00 97.7 123 18 118/65 (82) 93 04/23/18 10:21 93 Nasal Cannula 3.50 04/23/18 08:00 98.6 110 22 129/86 (100) 96 04/23/18 00:39 97.2 79 16 138/89 (105) 97 04/22/18 20:00 97.3 66 21 168/84 (112) 97 04/22/18 17:00 97.1 112 18 153/88 (109) 95 04/22/18 15:59 98.7 126 24 138/94 (109) 95 I/O 04/22/18 04/22/18 04/22/18 04/23/18 04/23/18 04/23/18 07:00 15:00 23:00 07:00 15:00 23:00 Intake Total 120 ml 480 ml Balance 120 ml 480 ml Intake Oral 120 ml 480 ml # Voids 2 2 # Bowel Movements 1 Result Diagram: 04/23/18 0934 04/23/18 0934 Imaging Last Impressions Chest X-Ray 04/21/18 0000 Signed Impressions: CONCLUSION: 1. Infiltrates bilaterally consistent with moderate pulmonary edema versus pne umonia. Clinical correlation is recommended. 2. Cardiomegaly. 3. Elevation of the left hemidiaphragm. 4. Degenerative changes and scoliosis of the thoracolumbar spine. Ankle X-Ray 04/21/18 0000 Signed Impressions: CONCLUSION: No fracture or subluxation demonstrated of the left ankle. Osteopenia. Probable Achilles tendinosis. Objective Remarks GENERAL: Elderly frail female, appears in NAD CARDIOVASCULAR: Regular rate and rhythm without murmurs, gallops, or rubs. RESPIRATORY: Breath sounds equal bilaterally. No accessory muscle use. GASTROINTESTINAL: Abdomen soft, non-tender, nondistended. MUSCULOSKELETAL: No cyanosis, or edema. BACK: Nontender without obvious deformity. No CVA tenderness. 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 CXR w/ bilateral infiltrates and moderate pulmonary edema. S/p Rocephin/Zithro in ER, continue w/ IV Abx, DuoNeb prn, monitor O2. Mucinex Add IS Obtain sputum cultures Check Pneumococcal and legionella Ag Loose stools. Check C. difficile PCR secondary to loose stool Foot Pain: Left. Secondary to plantar fasciitis, Ankle X-ray w/ no acute fracture, probable Achilles tendinosis, however no evidence on exam. Shoe insert, PT as needed, outpatient follow up. Gait Instability: Secondary to left foot pain, ambulates w/ walker at baseline , now increasingly difficult, lives alone currently. PT for eval/tx. Case Management for possible placement. CAD/previous CABG: Continue with Eliquis Hyperlipidemia: On pravastatin DVT Prophylaxis: Resume Eliquabel HANSON plan : DC when improves poss 1-2 days Edna Kelly MD Apr 23, 2018 13:14
[2018-04-23] MEDS ORDERED: METOPROLOL TARTRATE 25 MG TAB PO ONE (20:00)
[2018-04-23] MEDS: cefTRIAXone INJ 1,000 MG in SODIUM CHLORIDE 0.9% INJ 100 ML IV SCH (20:31)
[2018-04-23] MEDS: PRAVASTATIN SOD 20 MG TAB PO SCH (20:32)
[2018-04-23] MEDS: CALCIUM CARBONATE 500 MG CHEWABLE TAB CHEW PRN (20:33)
[2018-04-23] MEDS: AZITHROMYCIN INJ 500 MG in SODIUM CHLOR 0.9% 250 ML INJ 250 ML IV SCH (20:34)
[2018-04-24] VITALS: BP 157/70; PULSE 105; RESP 21; TEMP 98.1; O2SAT 94
[2018-04-24] MEDS: CALCIUM CARBONATE 500 MG CHEWABLE TAB CHEW PRN ×2 (00:56→23:50)
[2018-04-24] MEDS: APIXABAN 2.5 MG TABLET PO SCH ×2 (07:53→20:38)
[2018-04-24] MEDS: SODIUM CHLORIDE 0.9% FLUSH 10 ML FLUSH IV FLUSH SCH ×2 (07:53→20:39)
[2018-04-24] MEDS: METOPROLOL SUCCINATE 25 MG EXTENDED RELEASE TAB PO SCH (07:53)
[2018-04-24] MEDS: guaiFENesin E.R. 600 MG TAB PO SCH ×2 (07:53→20:38)
[2018-04-24 08:00] VITALS: BP 134/85; PULSE 150; RESP 17; TEMP 98; O2SAT 94
[2018-04-24 11:01] VITALS: PULSE 86; RESP 16; O2SAT 99
[2018-04-24 12:00] VITALS: BP 133/82; PULSE 113; RESP 17; TEMP 97.4; O2SAT 94
--- NOTE | 2018-04-24 15:48 | HHI.PR ---
Subjective Remarks Patient was seen today. She she. She is still with shortness of breath and coughing. However she is improving with not coughing much overnight and was able to get some sleep. No wheezing at this time. No nausea vomiting diarrhea constipation. Able to eat. PT [facility] Objective Vitals Vital Signs Date Time Temp Pulse Resp B/P (MAP) Pulse Ox O2 Delivery O2 Flow Rate FiO2 04/24/18 12:00 97.4 113 17 133/82 (99) 94 04/24/18 11:01 86 16 99 04/24/18 08:00 98.0 150 17 134/85 (101) 94 04/24/18 00:00 98.1 105 21 157/70 (99) 94 04/23/18 20:00 97.1 106 22 160/70 (100) 95 04/23/18 17:43 94 Nasal Cannula 2.50 04/23/18 16:00 98.7 110 18 127/65 (85) 94 I/O 04/23/18 04/23/18 04/23/18 04/24/18 04/24/18 04/24/18 06:59 14:59 22:59 06:59 14:59 22:59 Intake Total 480 ml 1550 ml 240 ml Output Total 500 ml Balance 480 ml 1050 ml 240 ml Intake Oral 480 ml 1200 ml 240 ml IV Total 350 ml Output Urine Total 500 ml # Voids 2 3 # Bowel Movements 0 0 Result Diagram: 04/23/18 0934 04/23/18 0934 Imaging Last Impressions Chest X-Ray 04/21/18 0000 Signed Impressions: CONCLUSION: 1. Infiltrates bilaterally consistent with moderate pulmonary edema versus pne umonia. Clinical correlation is recommended. 2. Cardiomegaly. 3. Elevation of the left hemidiaphragm. 4. Degenerative changes and scoliosis of the thoracolumbar spine. Ankle X-Ray 04/21/18 0000 Signed Impressions: CONCLUSION: No fracture or subluxation demonstrated of the left ankle. Osteopenia. Probable Achilles tendinosis. Objective Remarks GENERAL: Elderly frail female, appears in NAD CARDIOVASCULAR: Regular rate and rhythm without murmurs, gallops, or rubs. RESPIRATORY: Breath sounds equal bilaterally. No accessory muscle use. GASTROINTESTINAL: Abdomen soft, non-tender, nondistended. MUSCULOSKELETAL: No cyanosis, or edema. BACK: Nontender without obvious deformity. No CVA tenderness. 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 CXR w/ bilateral infiltrates and moderate pulmonary edema. S/p Rocephin/Zithro in ER, continue w/ IV Abx, DuoNeb prn, monitor O2. Mucinex Add IS Obtain sputum cultures Pneumococcal and legionella Ag are negative Loose stools. Check C. difficile PCR secondary to loose stool Foot Pain: Left. Secondary to plantar fasciitis, Ankle X-ray w/ no acute fracture, probable Achilles tendinosis, however no evidence on exam. Shoe insert, PT as needed, outpatient follow up. Gait Instability: Secondary to left foot pain, ambulates w/ walker at baseline , now increasingly difficult, lives alone currently. PT for eval/tx. Case Management for possible placement. CAD/previous CABG: Continue with Eliquis Hyperlipidemia: On pravastatin DVT Prophylaxis: Resume Eliquis DC plan : DC when improves poss 1-2 days PT [facility] discharge Edna Kelly MD Apr 24, 2018 15:48
[2018-04-24] MEDS ORDERED: HUMIBIDDM PO (15:49)
[2018-04-24] MEDS ORDERED: ALPR0.25 PO (15:49)
[2018-04-24] MEDS ORDERED: CEFU1TAB18 PO (15:49)
[2018-04-24] MEDS ORDERED: LACTCHW3 CHEW (15:50)
[2018-04-24] MEDS ORDERED: VENTAER INH (15:51)
--- NOTE | 2018-04-24 15:51 | HHI.DS ---
Discharge Summary Admission Date Apr 21, 2018 at 21:51 Discharge Date: Apr 25, 2018 Admitting Diagnosis bilateral pneumonia (1) PNA (pneumonia) ICD Code: J18.9 - Pneumonia, unspecified organism (2) Foot pain, left ICD Code: M79.672 - Pain in left foot (3) Gait instability ICD Code: R26.81 - Unsteadiness on feet Procedures none Brief History - From Admission This is an 88-year-old female with a PMH of HTN, Hyperlipidemia, CAD and Chronic Anticoagulation w/ Eliquis (reason unclear) who presented to the ER w/ complaints of SOB, cough and left foot pain. Reports cough/SOB for 3-4 days, states she had leftover antibiotics from previous dental infection and was told by her neighbor she should take it until she could be seen by her PCP on Sunday. Neighbor at bedside also states pt lives alone and has increasing difficulty w/ ambulation due to left foot pain from plantar fasciitis. Ambulates w/ walker. Denies fever, chills or chest pain. On arrival, BP 128/80 , HR 95, O2 sat 95% on 2L NC, Afebrile. CBC unremarkable. Chemistry essentially unremarkable except for BUN 19. Troponin negative. BNP 412. INR 1.1. Ankle X-ray with no acute fracture or subluxation. CXR with bilateral infiltrates and pulmonary pulmonary edema. S/p Rocephin/Zithro in ER. CBC/BMP: 04/23/18 0934 04/23/18 0934 Significant Findings Laboratory Tests Test 04/21/18 19:20 04/22/18 09:10 04/22/18 12:10 04/23/18 09:34 Red Blood Count 3.88 MIL/MM3 (4.00-5.30) 3.52 MIL/MM3 (4.00-5.30) 3.86 MIL/MM3 (4.00-5.30) Neutrophils (%) (Auto) 82.1 % (16.0-70.0) 83.2 % (16.0-70.0) 83.4 % (16.0-70.0) Lymphocytes (%) (Auto) 4.3 % (9.0-44.0) 4.2 % (9.0-44.0) 4.0 % (9.0-44.0) Monocytes (%) (Auto) 12.9 % (0.0-8.0) 11.8 % (0.0-8.0) 11.9 % (0.0-8.0) Lymphocytes # (Auto) 0.4 TH/MM3 (1.0-4.8) 0.4 TH/MM3 (1.0-4.8) 0.4 TH/MM3 (1.0-4.8) Monocytes # (Auto) 1.1 TH/MM3 (0-0.9) 1.0 TH/MM3 (0-0.9) 1.3 TH/MM3 (0-0.9) Activated Partial Thromboplast Time 35.0 SEC (24.3-30.1) Blood Urea Nitrogen 19 MG/DL (7-18) 20 MG/DL (7-18) Albumin 3.0 GM/DL (3.4-5.0) 2.5 GM/DL (3.4-5.0) Sodium Level 135 MEQ/L (136-145) Chloride Level 96 MEQ/L (98-107) Estimat Glomerular Filtration Rate 69 ML/MIN (>89) Troponin I LESS THAN 0.02 NG/ML B-Type Natriuretic Peptide 412 PG/ML (0-100) Mean Corpuscular Volume 100.4 FL (80.0-100.0) 101.4 FL (80.0-100.0) Total Protein 6.1 GM/DL (6.4-8.2) Urine Protein 30 mg/dL (NEG-TRACE) Urine Ketones 40 mg/dL (NEG) Urine Bacteria RARE /hpf (NONE) Urine Mucus FEW /lpf (OCC) Neutrophils # (Auto) 9.2 TH/MM3 (1.8-7.7) Random Glucose 111 MG/DL (74-106) Imaging Last Impressions Chest X-Ray 04/21/18 0000 Signed Impressions: CONCLUSION: 1. Infiltrates bilaterally consistent with moderate pulmonary edema versus pne umonia. Clinical correlation is recommended. 2. Cardiomegaly. 3. Elevation of the left hemidiaphragm. 4. Degenerative changes and scoliosis of the thoracolumbar spine. Ankle X-Ray 04/21/18 0000 Signed Impressions: CONCLUSION: No fracture or subluxation demonstrated of the left ankle. Osteopenia. Probable Achilles tendinosis. PE at Discharge GENERAL: Elderly frail female, appears in NAD CARDIOVASCULAR: Regular rate and rhythm without murmurs, gallops, or rubs. RESPIRATORY: Breath sounds equal bilaterally. No accessory muscle use. No wheezing. GASTROINTESTINAL: Abdomen soft, non-tender, nondistended. MUSCULOSKELETAL: No cyanosis, or edema. BACK: Nontender without obvious deformity. No CVA tenderness. Pt update on day of discharge Feels better. Some cough. Less congestion. No fever or chills. No n/v/d/c. Eating well. Family at bedside Hospital Course 88-year-old female with Bilateral PNA: Acute respiratory failure now requiring 2L nC. Patient was not on O2 at home. C/o cough/SOB x3-4 days [employer], was taking left over antibiotics for dental infection [employer] and was getting worse. CXR w/ bilateral infiltrates and moderate pulmonary edema. S/p Rocephin/Zithro in ER, continue w/ IV Abx, DuoNeb prn, monitor O2. Change to po ceftin at DC Mucinex Add IS Sputum cultures however non obtainable . Blood cultures so far negative to date Pneumococcal and legionella Ag are negative Duonebs as need IOS, acapella O2 supplement to keep O2 sat > 92% Loose stools. Check C. difficile PCR secondary to loose stool. Resolved. Foot Pain: Left. Secondary to plantar fasciitis, Ankle X-ray w/ no acute fracture, probable Achilles tendinosis, however no evidence on exam. Shoe insert, PT as needed, outpatient follow up. Gait Instability: Secondary to left foot pain, ambulates w/ walker at baseline , now increasingly difficult, lives alone currently. PT for eval/tx. Case Management for possible placement. CAD/previous CABG: Continue with Eliquis Hyperlipidemia: On pravastatin DVT Prophylaxis: Resume Eliquis PT recommends shelter facility at discharge. dc to Snf in stable condition to follow up as OP with PCP and consultants. Pt Condition on Discharge: Stable Discharge Disposition: Discharge to SNF Discharge Time: > 30 minutes Discharge Instructions DIET: Follow Instructions for: Heart Healthy Diet Activities you can perform: Regular-No Restrictions Follow up Referrals: PCP Follow-up - 2-3 Days New Medications: Albuterol 18 GM Inh (Ventolin Hfa 18 GM Inh) 90 Mcg/Act Aer 2 PUFF INH Q4-6H PRN for SHORTNESS OF BREATH, #1 INHALER 0 Refills Cefuroxime (Ceftin) 250 Mg Tab 250 MG PO BID for Infection for 10 Days, #20 TAB Dextromethorphan-Guaifenesin (Mucinex DM) 30-600 Mg Tab 1 TAB PO BID PRN for CHEST CONGESTION AND/OR COUGH, #10 TAB 0 Refills Lactobacillus Acidophilus (Lactinex) 1 Chew 1 TAB CHEW BID for Nutritional Supplement, #60 TAB 0 Refills Continued Medications: Alprazolam (Alprazolam) 0.25 Mg Tab 0.25 MG PO DAILY PRN for ANXIETY, #10 TAB 0 Refills (This prescription has been renewed) Apixaban (Eliquis) 2.5 Mg Tab 2.5 MG PO BID for Blood Clot Prevention, TAB 0 Refills Lisinopril (Lisinopril) 20 Mg Tab 20 MG PO DAILY, #30 TAB 0 Refills Metoprolol Succinate ER 24 HR (Metoprolol Succinate ER 24 HR) 25 Mg Tab 25 MG PO DAILY, #30 TAB 0 Refills Potassium Chloride Microencaps (Potassium Chloride Microencaps) 10 Meq Tab 10 MEQ PO DAILY for Electrolyte Replacement, #30 TAB 0 Refills Pravastatin (Pravastatin) 20 Mg Tab 20 MG PO DAILY for Cholesterol Management, #30 TAB 0 Refills Triamterene-Hydrochlorothiazide (Triamterene-Hydrochlorothiazide) 37.5-25 Mg Tab 1 TAB PO DAILY, #30 TAB 0 Refills Edna Kelly MD Apr 24, 2018 15:51
[2018-04-24 16:00] VITALS: BP 143/89; PULSE 113; RESP 17; TEMP 97.8; O2SAT 94
[2018-04-24 20:00] VITALS: BP 132/71; PULSE 101; RESP 19; TEMP 96.9; O2SAT 92
[2018-04-24] MEDS: PRAVASTATIN SOD 20 MG TAB PO SCH (20:38)
[2018-04-24] MEDS: AZITHROMYCIN INJ 500 MG in SODIUM CHLOR 0.9% 250 ML INJ 250 ML IV SCH (20:39)
[2018-04-24] MEDS: cefTRIAXone INJ 1,000 MG in SODIUM CHLORIDE 0.9% INJ 100 ML IV SCH (20:39)
[2018-04-25] VITALS: BP 129/74; PULSE 105; RESP 19; TEMP 97.1; O2SAT 93
[2018-04-25] MEDS: ACETAMINOPHEN 325 MG TAB PO PRN (06:55)
[2018-04-25] MEDS: METOPROLOL SUCCINATE 25 MG EXTENDED RELEASE TAB PO SCH (07:38)
[2018-04-25] MEDS: SODIUM CHLORIDE 0.9% FLUSH 10 ML FLUSH IV FLUSH SCH (07:38)
[2018-04-25] MEDS: APIXABAN 2.5 MG TABLET PO SCH (07:38)
[2018-04-25] MEDS: guaiFENesin E.R. 600 MG TAB PO SCH (07:38)
[2018-04-25 13:35] VITALS: O2SAT 94
== END 2018-04-25 13:49 | DRG 193 ==
LOC: NEPC 17:21 → NEDA 21:51 → NEPFCDU 22:37 → N07A 04-22 17:06
PROVIDERS: ADMIT Hospitalist; ATTEND Hospitalist
DX: J18.9 Pneumonia, unspecified organism (principal); J96.00 Acute respiratory failure, unspecified whether with hypoxia or hypercapnia; J81.1 Chronic pulmonary edema; E78.5 Hyperlipidemia, unspecified; R26.81 Unsteadiness on feet; I25.10 Atherosclerotic heart disease of native coronary artery without angina pectoris; M72.2 Plantar fascial fibromatosis; I11.9 Hypertensive heart disease without heart failure; K04.7 Periapical abscess without sinus; M41.85 Other forms of scoliosis, thoracolumbar region; M76.62 Achilles tendinitis, left leg; M85.80 Other specified disorders of bone density and structure, unspecified site; Z95.2 Presence of prosthetic heart valve; Z95.1 Presence of aortocoronary bypass graft; X58.XXXA Exposure to other specified factors, initial encounter; Z88.8 Allergy status to other drugs, medicaments and biological substances; Z79.01 Long term (current) use of anticoagulants
CPT/HCPCS: 71046; 73610; 80048; 80053; 81001; 82550; 83605; 83690; 83735; 83880; 84484; 85025; 85610; 85730; 87040; 87070; 87086; 87205; 87449; 94150; 94640; 96365; 96366; 96367; J0456; J0696; J7050